=== PATIENT | male | born 1995 | race Caucasian/White ===

== ENCOUNTER 2025-03-05 18:09 | Emergency (ER) | payer OTHER, SELFPAY ==
[2025-03-05 18:13] VITALS: BP 130/90
[2025-03-05 18:32] LABS: % Basophils 0.3 % (0-2); % Immature Granulocytes 0.3 % (0-0.5); % Lymphocytes 5.4 % (20.5-51.1); % Monocytes 3.8 % (1.7-9.3); % Neutrophils 90.2 % (42.2-75.2); Absolute Lymphocytes 0.6 10^3/uL (1.2-3.4); Absolute Monocytes 0.5 10^3/uL (0.1-0.6); Absolute Neutrophils 10.6 10^3/uL (1.4-6.5); Hematocrit 44.6 % (39.0-52.0); Hemoglobin 16.5 g/dL (13.0-18.0); Mean Corpuscular Hgb 29.7 pg (27.0-31.0); Mean Corpuscular Volume 80.4 fL (80.0-94.0); Mean Platelet Volume 8.7 fL (7.4-10.4); Nucleated Red Blood Cells % 0 % (-); Platelet Count 328 10^3/uL (130-400); Red Blood Cell Count 5.55 10^6/uL (4.70-6.10); Red Cell Dist. Width 11.1 % (11.5-14.5); White Blood Cell Count 11.8 10^3/uL (4.8-10.8)
[2025-03-05 18:46] LABS: ALT (SGPT) 27 U/L (0-50); AST (SGOT) 26 U/L (17-59); Albumin 5.1 g/dl (3.5-5.0); Alkaline Phosphatase 82 U/L (38-126); Blood Urea Nitrogen 16 mg/dl (9-20); Calcium 9.5 mg/dl (8.4-10.2); Carbon Dioxide 30 mmol/L (22-30); Chloride 92 mmol/L (98-107); Glucose 123 mg/dl (70-99); Lipase 91 U/L (23-300); Potassium 3.2 mmol/L (3.5-5.1); Sodium 132 mmol/L (135-145); Total Bilirubin 1.6 mg/dl (0.2-1.3); Total Protein 8.2 g/dl (6.3-8.2); eGFR > 60.00
--- NOTE | 2025-03-05 21:02 | ED.GENMED ---
History of Present Illness
General
Chief Complaint: Abdominal Symptoms
Source: patient
Exam Limitations: none
Time Seen by Provider: 03/05/25 20:49
History of Present Illness
History of Present Illness:
29yoM with no significant past medical history presenting with his father for evaluation of vomiting. Symptoms have been ongoing for 5 days. He was vomiting every hour for the first 2 days. He was feeling better for a while but started having
vomiting again today. Vomiting seems to come in episodes and he has times where he is asymptomatic. He is able to keep down liquids but vomits anytime he eats any foods. No prior history of similar issues. He denies any diarrhea, abdominal pain,
fevers, hematemesis. He was at the [employer] the day before his symptoms began. He denies any suspicious food intake, recent travel, or sick contacts. No previous abdominal surgeries. Of note, patient uses marijuana daily.
Phy Exam
General Physical Exam
General Presentation: well appearing and no apparent distress
General Skin: warm and dry
General Habitus: normal
General Mental: alert
ENT Exam
ENT Exam: normocephalic
Cardiovascular Exam
Cardiovascular Exam: regular rate/rhythm
Pulmonary Exam
Pulmonary Exam: lungs clear, no respiratory distress, no rales, no crackles, no rhonchi and no wheezing
Gastrointestinal Exam
Gastrointestinal Exam: non tender, soft and non distended
Neurological Exam
Neurological Exam: alert
[place]on Coma Scale
Eye Opening: Spontaneous
Verbal Response: Oriented
Motor Response: Obeys Commands
GCS Total Score: 15
Skin Exam
Skin Exam: normal color and warm/dry
Psychiatric Exam
Psychiatric Exam: normal mood/affect
Course
Orders/Labs/Results
Orders:
Orders
03/05/25 18:23
Complete Blood Count/With Diff Urgent
Comprehensive Metabolic Panel Urgent
Lipase Urgent
Magnesium Urgent
Comment: ADD ON
03/05/25 21:01
Add On- LAB Urgent
Tests Added?: magnesium
0.9% Sodium Chloride 1000 ml [Nss] 1,000 ml IV BOLUS
Ondansetron Injectable [Zofran] 4 mg IV NOW STA
Potassium Chloride [KCl] 40 meq PO NOW STA
Abnormal Lab Results
03/05/25
18:23
WBC 11.8 H 10^3/uL
(4.8-10.8)
RDW 11.1 L %
(11.5-14.5)
Absolute Neuts (auto) 10.6 H 10^3/uL
(1.4-6.5)
Absolute Lymphs (auto) 0.6 L 10^3/uL
(1.2-3.4)
Neutrophils % 90.2 H %
(42.2-75.2)
Lymphocytes % 5.4 L %
(20.5-51.1)
Sodium 132 L mmol/L
(135-145)
Potassium 3.2 L mmol/L
(3.5-5.1)
Chloride 92 L mmol/L
(98-107)
Glucose 123 H mg/dl
(70-99)
Total Bilirubin 1.6 H mg/dl
(0.2-1.3)
Albumin 5.1 H g/dl
(3.5-5.0)
03/05/25 18:23
03/05/25 18:23
Vital Signs
Initial and Last Documented VS:
Initial Vital Signs
Temp Pulse Resp BP Pulse Ox
98.2 F 92 16 130/90 97
03/05/25 18:13 03/05/25 18:13 03/05/25 18:13 03/05/25 18:13 03/05/25 18:13
Last Documented Vital Signs
Temp Pulse Resp BP Pulse Ox
98.2 F 92 16 141/82 97
03/05/25 18:13 03/05/25 18:13 03/05/25 18:13 03/05/25 22:00 03/05/25 22:00
MDM/Problems Addressed
Differential Diagnosis Includes:
29yoM here with vomiting x 1 week. Tolerating fluids but having trouble with solids. Denies abd pain or diarrhea. Smokes marijuana daily. VSS. He is well appearing in no distress. Abdominal exam is benign. Differential diagnosis includes but is not
limited to: Gastroenteritis, cannabinoid hyperemesis syndrome, dehydration
Initial ED plan: Labs obtained in triage. Sodium 132 and chloride 92 suggesting mild dehydration. Renal function normal. Potassium 3.2. Kdur, IV Zofran, and IV fluid bolus ordered. No indication for abdominal imaging in setting of benign exam.
*Critical Care Note
Total Time (30-74mins, 75-104mins- exclusive of procedures): Not Applicable
Update Note
Update Note:
Patient feeling significantly improved on reassessment and is able to tolerate p.o. medication/fluids. No indication for hospitalization. Discussed possibility of cannabinoid hyperemesis syndrome with patient. Prescription for Zofran provided and
supportive care discussed. Advised follow-up with PCP and GI. ED return precautions reviewed. Patient discharged in stable condition.
ED Attending Note
-
Portions of this chart may have been created with voice recognition software.� Occasional wrong word or��sound alike� substitutions may have occurred due to the inherent limitations of voice recognition software.
Discharge Plan
Departure
Patient Disposition: Home (Routine Discharge)
Date of Disposition: 03/05/25
Time of Disposition: 22:23
Patient with high blood pressure during this ER visit?: No
Discharge Problem:
Nausea and vomiting
Instructions: Nausea and Vomiting, Adult (DC)
Prescriptions:
New
ondansetron 4 mg tablet,disintegrating
4 mg PO Q6H PRN (Reason: nausea and vomiting) Qty: 20 0RF
Referrals:
Brooke Gandara MD [Active, Gastroenterology]
Stand Alone Forms: Return to Work
Activity Restrictions/Additional Instructions:
Take Zofran as needed for nausea. Drink plenty of fluids and eat a bland diet (bananas, rice, applesauce, toast).
Please follow-up with a family doctor and gastroenterology. Return to the ER with any new or worsening symptoms including inability to keep down fluids.
Interventions
Interventions:
*Risk Screen - Suicide Last Done: 03/05/25 18:16
*General Assessment Last Done: 03/05/25 21:20
*Neglect/Abuse Screening Last Done: 03/05/25 18:16
*ED- Fall Risk Assessment Last Done: 03/05/25 21:20
*ED COVID-19 Vaccine History Last Done: 03/05/25 21:20
*Nursing Disposition Last Done: 03/05/25 23:03
[facility] Assessment Last Done: 03/05/25 21:20
Discharge Date and Time
Discharge Date/Time: 03/05/25 23:03
Print Language: GREENLANDIC
[2025-03-05] MEDS: NSS 1000 IV (21:14)
[2025-03-05] MEDS: ZOFRAN 4 MG IV (21:15)
[2025-03-05] MEDS: KCL 40 MEQ PO (21:15)
[2025-03-05 21:27] VITALS: BP 152/94
[2025-03-05 21:34] LABS: Magnesium 2.2 mg/dl (1.6-2.3)
[2025-03-05 22:00] VITALS: BP 141/82
== END 2025-03-05 23:03 | disposition home or self-care (01) ==
LOC: EMR 18:09
PROVIDERS: Emergency Medicine; EMERGENCY PHYSICIAN Emergency Medicine
DX: R11.2 Nausea with vomiting, unspecified (principal)
CPT/HCPCS: 99284; 96374; 96361; 80053; 83690; 83735; 85025